=== PATIENT | male | born 1955 | race Caucasian/White ===

== ENCOUNTER → 2020-08-25 09:57 | Outpatient (CLI) | payer OTHER, SELFPAY ==
--- NOTE | 2020-08-25 09:58 | CA_ITS ---
APPROVED REPORT EXAM: Comprehensive 2D, Doppler, and color-flow Echocardiogram Certified Medical Transcriptionist: BRITNEY Wiggins, RVS Ht: 6 ft 1 in Wt: 276lbs BSA: 2.47 BP: 155/100 mmHg Indications: cad, diastolic dysfunction, angina 2D Dimensions IVSd 1.42 cm M: 0.6-1.2 LVEF (Visual) 74.20 % PWd 1.08 cm M: 0.6 - 1.2 LA Volume 40.80 mL LVDd 4.91 cm M: 4.2 - 5.9 LA Volume Index [id number] mL/m2 (M/F) 16-34 LVDs 2.79 cm M: 2.5 - 4.0 LVOT 2.22 cm (M/F) 1.5-2.5 M-Mode Dimensions LA Diam 3.68 cm (1.9-4.0) Ao Diam 4.15 cm (2.0-3.7) EPSs 1.58 cm TAPSE 2.27 (<1.7) LV Diastology E Decel Time 321.00 (160-240 msec) E/A Ratio 0.61 MED E' 5.80 (< 7 cm/sec) MED A' 10.80 cm/s E'/MED E' Ratio 8.41 (>14) LAT E' 7.60 (<10 cm/sec) LAT A' 11.30 cm/s E/LAT E' Ratio 6.42 (>14) Aortic Valve LVOT Max 96.00 (70-110 cm/s) LVOT VTI 19.86 cm AO Peak GR. 3.70 mmHg Mitral Valve MV E Max Byron. 49.00 (40-130 cm/s) MV A Velocity 80.00 (40-130 cm/s) E/A Ratio 0.61 MV Decel. Time 321.00 (160-240 ms) MV Mean Gr. 0.70 (<2mmHg) MV PHT 94.00 ms Pulmonary Valve PV Peak Velocity 84.00 (50-150 cm/s) VA End VMAX 179.00 cm/s Tricuspid Valve TR P. Velocity 247.00 cm/s RAP Estimate 10.00 mmHg RVSP 34.40 mmHg Left Ventricle Left atrium is mildly enlarged, left ventricle is normal size, mild concentric left ventricular hypertrophy, visually estimated ejection fraction 55% with no regional wall motion abnormality, grade 1 diastolic dysfunction seen without tissue Doppler evidence of raise left atrial pressure. Right Ventricle Right atrium and right ventricle mildly enlarged with normal contractility. Aortic Valve Aortic valve is minimally thickened and fibrosed, there is no aortic stenosis or aortic insufficiency. Mitral Valve Mitral valve is grossly normal, there is trace mitral regurgitation. Tricuspid Valve Tricuspid valve grossly normal, there is trace tricuspid regurgitation, tricuspid regurgitation jet velocity is inadequate for calculation of the right ventricular systolic pressure. Pulmonic Valve Pulmonic valve is poorly visualized. Great Vessels Aortic root is normal size. Pericardium No significant pericardial effusion noted. Conclusion 1. Mild biatrial enlargement, normal left ventricular size, mild concentric left ventricular hypertrophy, visually estimated ejection fraction 55% with no regional wall motion abnormality, grade 1 diastolic dysfunction seen without tissue Doppler evidence of raise left atrial pressure. 2. Mildly enlarged right ventricle with normal contractility. 3. Trace mitral and tricuspid regurgitation. 4. No significant pericardial effusion noted. Electronically signed by : Lucas Stauffer, 08/25/2020 12:00:26
== END ==
PROVIDERS: PCP Family Medicine; Visit Provider Urology
DX: R06.00 Dyspnea, unspecified (principal); I20.9 Angina pectoris, unspecified; R05 Cough; E78.5 Hyperlipidemia, unspecified; I10 Essential (primary) hypertension; Z72.0 Tobacco use
CPT/HCPCS: 93306

== ENCOUNTER → 2020-09-09 06:04 | Outpatient (CLI) | payer OTHER, SELFPAY ==
--- NOTE | 2020-09-09 06:11 | CA_ITS ---
APPROVED REPORT Exam: Pharmacologic Technologist: Ami Hicks Ht: 6 ft 1 in Wt: 276 lbs BSA: 2.47 m2 HR: 71 bpm BP: 147/95 mmHg Indications: Chest pain Medical History Medications: Aspirin,,,,, Metoprolol,,,,, Losartan,,,,, Atorvastatin,,,,, HCTZ,,,,, CloPIdogrel,,,,, Stress Test Details Test: LEXISCAN HR Resting HR: 82 bpm Max Heart Rate (APMHR): 158.856614 bpm Max HR Achieved: 110 bpm Target HR (85% APMHR): 134.196809 bpm % of APMHR: 69.62 Recovery HR: 79 bpm BP Resting BP: 147/95 mmHg Max BP: 147/95 mmHg Recovery BP: 147.0/96.0 mmHg ECG Resting ECG: Normal sinus rhythm, NS ST abnormalities Clinical Exercise duration: 04:00 min Highest Stage Achieved: Exercise capacity: 1.0 METs Stress ECG Conclusion Symptoms: Shortness of breath, mild nausea. No chest pain Arrhythmias/Ectopy: Rare PAC ST-T Changes: Exaggeration of baseline ST abnormalities with 0.5 - 0.[address] depression inferiorly and laterally. Conclusion: Non-diagnostic Lexiscan stress. Myoview images reported separately. Test Summary REST . . . . . . . Resting REST 08:37 . . 82 . 147/ 95 . . Stage 1 . . . . . . . Myoview Injected Stage 1 01:00 . . 105 . . . . Stage 2 01:00 . . 98 . 118/ 87 . . Stage 3 01:00 . . 88 . 138/ 88 . . Stage 4 01:00 . . 83 . 139/ 89 . Stop exercise at 04:00 RECOVERY 01:00 . . 91 . 132/ 78 . . RECOVERY 02:00 . . 87 . 132/ 78 . . RECOVERY 03:00 . . 79 . 147/ 96 . . RECOVERY 03:19 . . 85 . 147/ 96 . . Electronically signed by : Lucas Stauffer, 09/09/2020 16:49:18
--- NOTE | 2020-09-09 06:11 | NM_ITS ---
APPROVED REPORT Exam: Nuclear Stress Test Indication: Chest pain, SOB, HTN, CAD, Hx of CO, Tobacco use Patient Location: Outpatient Stress Tech: Ami Hicks NM Tech:Hillary Cardoza, ARRT, RT (R)(N) Ht: 6 ft 1 in Wt: 272 lbs HR: 71 bpm BP: 147/95 mmHg BSA: 2.45 m2 BMI: 35.8 History: Chest pain, SOB, HTN, CAD, Hx of CO, Tobacco use Procedure: Patient received a 0.4 mg of intravenous Lexiscan, resting heart rate 71 bpm, resting blood pressure 147/95 mmHg, with Lexiscan maximum heart rate achived was 108 bpm which is Less than 85 % of the maximum predicted heart rate and blood pressure was 118/87 mmHg. With Lexiscan, patient denied any complaint of chest pain. Electrocardiogram Resting electrocardiogram showed sinus rhythm, with Lexiscan there is less than 1.[address] segment depression noted from the baseline EKG. The EKG portion of the Lexiscan is nondiagnostic. Cardiac Stress and Resting SPECT Images: Cardiac Stress and Resting SPECT images were obtained using technetium 99m Myoview 31.5 mCi stress and 9.86 mCi at rest. Gated SPECT for analysis of segmental wall motion and calculation of ejection fraction also done. Prone images were also obtained. Cardiac stress and rest SPECT images show reversible ischemia involving the anteroseptal wall, computer derived ejection fraction is 47%, with mild anteroseptal wall hypokinesis, right ventricle is mildly enlarged with normal contractility. Conclusion: 1. The EKG portion of the Lexiscan is nondiagnostic. 2. Scintigraphic evidence of reversible ischemia seen involving the anteroseptal wall, computer derived ejection fraction is 47% with segmental wall motion abnormality described above, right ventricle is mildly enlarged with normal contractility. 3. Abnormal Lexiscan Myoview study. Electronically signed by : Lucas Stauffer, 09/09/2020 17:25:19
--- NOTE | 2020-09-09 08:11 | HMH.ITSHM ---
Current Home Medications as stated by this patient Ritesh Sales or procurement representative. []METOPROLOL LOSARTAN HCTZ CLOPIDOGREL ATORVASTATIN ASA
== END ==
PROVIDERS: PCP Family Medicine; Visit Provider Urology
DX: R06.00 Dyspnea, unspecified (principal); I20.9 Angina pectoris, unspecified; R05 Cough; E78.5 Hyperlipidemia, unspecified; I10 Essential (primary) hypertension; Z72.0 Tobacco use
CPT/HCPCS: 78452; 93017; A9502; J2785

== ENCOUNTER → 2020-09-30 08:17 | Outpatient (CLI) | payer OTHER, SELFPAY ==
[2020-09-30 09:02] LABS: Basophils % 0.3 % (0.1-2.0); Eosinophils # 0.2 K/mm3 (0.0-0.4); Eosinophils % 1.2 % (0.1-12.0); Hematocrit 43.2 % (42.0-52.0); Hemoglobin 15.3 g/dL (14.1-18.0); Lymphocytes # 2.6 K/mm3 (0.7-4.5); Lymphocytes % 20.9 % (10-50); Mean Corpuscular HGB Conc 35.4 g/dL (31.8-35.4); Mean Corpuscular Hemoglobin 32.3 pg (27.0-31.2); Mean Corpuscular Volume 91.3 fl (80-94); Mean Platelet Volume 7.6 fl (7.4-10.4); Monocytes # 0.7 K/mm3 (0.1-1.0); Monocytes % 5.9 % (1.7-9.3); Neutrophils # 8.8 K/mm3 (1.8-7.8); Neutrophils % 71.7 % (37.0-80.0); Platelet Count 216 K/mm3 (142-424); Red Blood Count 4.73 M/mm3 (4.60-6.20); White Blood Count 12.2 K/mm3 (4.8-10.8)
[2020-09-30 09:14] LABS: Chloride 100 mmol/L (98-107); Potassium 3.6 mmoL/L (3.5-5.1); Sodium 134 mmol/L (136-145)
[2020-09-30 09:17] LABS: Anion Gap 11.6 mEq/L (5-15); Blood Urea Nitrogen 9 mg/dl (9-20); Calcium 9.6 mg/dl (8.4-10.2); Carbon Dioxide 26 mmol/L (22.0-30.0); Estimated Glomerular Filt Rate 85 ml/min (>60); GFR (African American) 103 ML/MIN (>60); Glucose 104 mg/dl (74-100)
== END ==
PROVIDERS: PCP Family Medicine; Visit Provider Urology
DX: R06.00 Dyspnea, unspecified (principal); I10 Essential (primary) hypertension; E78.2 Mixed hyperlipidemia; I20.9 Angina pectoris, unspecified; I25.118 Atherosclerotic heart disease of native coronary artery with other forms of angina pectoris; Z72.0 Tobacco use
CPT/HCPCS: 36415; 80048; 85025; U0003

== ENCOUNTER 2020-10-01 09:05 | Day surgery (SDC) | payer OTHER, SELFPAY ==
[2020-10-01] VITALS (12 sets, daily range): BP systolic 100–152; BP diastolic 63–98; PULSE 66–78; RESP 18–20; O2SAT 95–98; BMI 36.0
--- NOTE | 2020-10-01 | IR_ITS ---
APPROVED REPORT Patient Location: Outpatient PROCEDURES Left heart catheterization Left ventriculogram Selective coronary angiogram Drug-eluting stent deployment to the proximal mid LAD INDICATION Coronary artery disease, High risk abnormal Myoview with anterior septal ischemia Informed consent was obtained prior to the procedure. COMPLICATIONS None Estimated Blood Loss: Less than 10 mls TECHNIQUE One percent lidocaine used to anesthetize the right anterior aspect of the wrist. The right radial artery was accessed via the Seldinger technique. A 6 Taiwanese sheath was placed in the right radial artery. 2.5 mg of verapamil, 800 mcg of nitroglycerin, 1mg Lidocaine and 5000 U Heparin were given through the arterial sheath. The trap catheter was also used to perform left heart catheterization, left ventriculogram and selective coronary angiogram. At the end of the diagnostic procedure therapeutic heparin was administered and a 3.5 EBU guide catheter with sideholes was placed in the left main artery. A Choice PT extra-support wire was placed distally and a 2.5 x 15 mm balloon was deployed on 2 occasions reducing the critical stenosis. Following this a 3 mm x 26 mm resolute Lincoln stent was placed immediately distal to the first diagonal artery and deployed at 20 arelis reducing the critical stenosis to 0%. BETH II flow was present at the beginning of the procedure with BETH-3 flow at the end of the procedure. After achieving excellent angiographic results the apparatus was removed the sheath was removed and hemostasis was achieved using TR banding patient was transferred to the postop holding in stable condition ANGIOGRAPHIC RESULTS The left main artery Normal The left anterior descending artery Is normal in the immediate proximal segment however immediately distal to the first diagonal artery and proximal to the first septal mechanical press operator the LAD has a stent which has critical in-stent restenosis greater than 90% accompanied by BETH II flow. An additional 80% concentric stenosis is present distal to the stent. The remaining LAD is patent with diffuse 30% calcified stenosis The circumflex artery Is a large-caliber codominant vessel with mild proximal 30% stenosis The right coronary artery Is a codominant vessel and has severe diffuse vascular ectasia accompanied by BETH II flow. There is a 30% mid vessel calcified stenosis. Distally the posterior lateral branch also has severe vascular ectasia The JOSHI ventriculogram reveals Normal 65% The left ventricular end-diastolic pressure 10 mmHg IMPRESSION Critical disease in the LAD accompanied by slow flow as described above Successful stenting of the proximal to mid LAD critical disease reduced to 0% with 1 drug-eluting stent Persistent severe vascular ectasia throughout the codominant right coronary artery accompanied by BETH II flow all consistent with endothelial dysfunction Normal ejection fraction Normal left ventricular end-diastolic pressure PLAN 1. Dual antiplatelet therapy 2. LDL less than 55 3. Cardiac rehabilitation 4. Avoidance of tobacco products 5. Treatment of endothelial dysfunction with long-acting nitrates in order to improve flow down the right coronary artery Electronically signed by : Red Salgado, 10/01/2020 11:07:08
[2020-10-01 11:18] LABS: CATHL Activated Clotting Time 346 SEC (74-125)
--- NOTE | 2020-10-01 13:44 | HMH.PHACLD ---
Ritesh Sales has received discharge medication counseling on the following medications: CONTINUED MEDICATIONS: LOSARTAN, ATORVASTATIN, ASPIRIN, METOPROLOL, PLAVIX
== END 2020-10-01 13:50 | disposition home or self-care (01) ==
PROVIDERS: PCP Family Medicine; Visit Provider Internal Medicine
DX: I25.118 Atherosclerotic heart disease of native coronary artery with other forms of angina pectoris (principal); R94.30 Abnormal result of cardiovascular function study, unspecified; I10 Essential (primary) hypertension; R06.00 Dyspnea, unspecified; Z79.899 Other long term (current) drug therapy
CPT/HCPCS: 85347; 92928; 93458; 99152; 99153; C1725; C1760; C1769; C1876; C9600; J1644; Q9967

== ENCOUNTER 2020-10-13 09:19 | Outpatient (RCR) | payer OTHER, SELFPAY | END 2020-12-19 11:21 | disposition home or self-care (01) | LOC: PT 09:19 | PROVIDERS: Visit Provider Internal Medicine | DX: Z95.5 Presence of coronary angioplasty implant and graft (principal); I25.10 Atherosclerotic heart disease of native coronary artery without angina pectoris | CPT/HCPCS: 93798 ==